=== PATIENT | female | born 1945 | race Caucasian/White ===

== ENCOUNTER 2017-11-21 08:07 | Outpatient (RCR) | payer MEDICARE, OTHER, SELFPAY ==
--- NOTE | 2017-11-22 11:02 | PT.OTN ---
Current Diagnoses Mixed incontinence (11/21/17) Physical Therapy Treatment Note PT-OP-A Visit Information Start: 11/21/17 08:14 Freq: Status: Active Protocol: Document 11/21/17 08:15 AMB (Rec: 11/22/17 07:24 AMB [email or web address]) Out-Patient Physical Therapy Visit Information Visit Information Visit Type Treatment Note Visit Note POC due 12/03/17 Visit Start Time 08:15 Visit Stop Time 09:00 Total Visit Minutes 45 Visit Number 4 Evaluation Information Evaluation Date 11/21/17 PT-OP-C Subjective Start: 11/21/17 08:14 Freq: Status: Active Protocol: Document 11/21/17 08:15 AMB (Rec: 11/22/17 07:24 AMB [email or web address]) OP-PT Subjective Patient Comments Patient Comments Pt reports she has an upcoming urology appointment. She feels like she is getting stronger. She still needs to wear pads. Continues to leak with sit to stand. PT-OP-Q Treatments Start: 11/21/17 08:14 Freq: Status: Active Protocol: Document 11/21/17 08:15 AMB (Rec: 11/22/17 11:01 AMB [email or web address]) Neuro Re-Education Treatment Other Activities Pelvic floor strengthening Details quick flicks, long holds up to 10 seconds Reps/Duration 30 min Comments with sEMG, then with e-stim Self-Care/Home Management Treatment Education Other Education Using pelvic floor strength to avoid leaks with functional activities, bladder emptying strategies. PT-OP-T Assessment and Plan Start: 11/21/17 08:14 Freq: Status: Active Protocol: Document 11/21/17 08:15 AMB (Rec: 11/22/17 11:01 AMB [email or web address]) Physical Therapy Assessment Assessment Summary Assessment The patient's strength is improving, but she continues to have leaking with sit to stand. Enforced using tightening techniques with functional movement. Physical Therapy Plan Frequency and Duration Frequency of Treatment 1x/Week Plan of Care End Date 12/03/17 Next Visit Focus/Plan Next Visit Plan Follow up on urology appointment, patient to call after that appointment to schedule, or if she is pursuing surgery, likely d/c at that time. Please Sign and Return: I have reviewed this Plan of Care and certify that the skilled therapy services above are required to meet the patient?s needs. Physician Signature Date Printed Name and Credentials Clinical Instructor Signature Printed Name and Credentials
--- NOTE | 2018-01-14 09:31 | PT.OPDS ---
Current Diagnoses Mixed incontinence (11/21/17) Provider Visit Care Team Role Provider Type Consuelo Lewis MD Attending Provider Physician Family Provider Primary Care Provider Specialty: Family Practice Address: [address] [place] [address], [facility] Email: [email or web address] Number Visit Number 4 Discharge Summary PT-OP-C Subjective Start: 11/21/17 08:14 Freq: Status: Active Protocol: Document 11/21/17 08:15 AMB (Rec: 11/22/17 07:24 AMB [email or web address]) OP-PT Subjective Patient Comments Patient Comments Pt reports she has an upcoming urology appointment. She feels like she is getting stronger. She still needs to wear pads. Continues to leak with sit to stand. PT-OP-T Assessment and Plan Start: 11/21/17 08:14 Freq: Status: Active Protocol: Document 01/14/18 09:21 AMB (Rec: 01/14/18 09:31 AMB [email or web address]) Physical Therapy Assessment Assessment Summary Assessment The patient is going to follow up her physician given that she continues to leak with sit to stand. She is ready to be discharged at this time.
== END 2018-01-27 15:02 ==
LOC: PHYS 08:07
PROVIDERS: Family Provider Family Medicine; PCP Family Medicine; Visit Provider Family Medicine
DX: N39.46 Mixed incontinence (principal)
CPT/HCPCS: 97112; 97535

== ENCOUNTER → 2018-02-17 09:48 | Outpatient (CLI) | payer MEDICARE, OTHER, SELFPAY | PROVIDERS: Family Provider Family Medicine; PCP Family Medicine; Visit Provider Family Medicine | DX: Z12.11 Encounter for screening for malignant neoplasm of colon (principal) ==

== ENCOUNTER → 2018-02-17 09:55 | Outpatient (CLI) | payer MEDICARE, OTHER, SELFPAY ==
[2018-02-17 11:07] LABS: Cholesterol 189 mg/dL (140-199); Glucose 95 mg/dL (80-110); HDL Cholesterol 69 mg/dL (40-60); LDL Cholesterol Calculated 103 mg/dL (<100); Triglycerides 87 mg/dL (35-150)
== END ==
PROVIDERS: PCP Family Medicine; Visit Provider Family Medicine
DX: Z12.11 Encounter for screening for malignant neoplasm of colon (principal); Z13.220 Encounter for screening for lipoid disorders; Z13.1 Encounter for screening for diabetes mellitus
CPT/HCPCS: 36415; 80061; 82947

== ENCOUNTER → 2018-03-04 09:15 | Outpatient (CLI) | payer MEDICARE, OTHER, SELFPAY ==
[2018-03-07 00:19] LABS: Fecal Immunochemical Test NOT DETECTED
== END ==
PROVIDERS: PCP Family Medicine; Visit Provider Family Medicine
DX: Z12.11 Encounter for screening for malignant neoplasm of colon (principal)
CPT/HCPCS: 82274

== ENCOUNTER → 2019-04-16 13:17 | Outpatient (CLI) | payer MEDICARE, OTHER, SELFPAY | PROVIDERS: Family Provider Family Medicine; PCP Family Medicine; Visit Provider Internal Medicine | DX: M85.852 Other specified disorders of bone density and structure, left thigh (principal); Z78.0 Asymptomatic menopausal state; Z82.62 Family history of osteoporosis | CPT/HCPCS: 77080 ==

== ENCOUNTER 2019-06-06 07:37 | Emergency (ER) | payer MEDICARE, OTHER, SELFPAY ==
[2019-06-06 07:53] VITALS: BP 139/68; PULSE 83; RESP 18; TEMP 36.6; O2SAT 98; BMI 24.2
--- NOTE | 2019-06-06 08:02 | ED_ITS ---
HPI - Female Genitourinary General Chief complaint: Urogenital-Female Stated complaint: needing new catheter put in Time Seen by Provider: 06/06/19 08:01 Mode of arrival: Ambulatory History of Present Illness HPI Narrative: 74-year-old woman 2 weeks now post urethral sling and vaginal prolapse repair at [facility]. Apparently there had been a slight injury to her bladder and some repair to the bladder at the time of surgery. She was discharged home with Ayers catheter. The catheter was to be removed yesterday however she found it dislodged (no evidence of inflated balloon) on . She was unable to spontaneously void. She was found to have 700 cc in her bladder at her follow-up surgical visit and the catheter was replaced. She again noted the catheter had spontaneously come out and again the balloon was not inflated. She presents this morning with inability to void for replacement of catheter. No fevers cough cold chills chest pain shortness of breath abdominal pain dysuria or significant postoperative pain Related Data Home Medications Medication Instructions Recorded Confirmed GLUCOSAMINE HCL/CHONDR ANDREA A NA 1 tab PO BID #60 05/07/11 12/22/18 (Glucosamine-Chondroitin Caplet) polyethylene glycol 3350 [Miralax] 17 gm PO QDAY #0 01/24/17 12/22/18 ascorbic acid (vitamin C) 500 mg PO QDAY #0 04/17/17 12/22/18 coenzyme Q10 [Co Q-10] 100 mg PO #0 04/17/17 12/22/18 Previous Rx's Medication Instructions Recorded estradiol [Estrace] 0 VAGINAL SEE INSTRUCTIONS #2 tube 06/18/17 rosuvastatin 10 mg tablet 10 mg PO HS #90 tab 04/14/18 risedronate 35 mg tablet 35 mg PO QWEEK #12 tab 12/15/18 Allergies Allergy/AdvReac Type Severity Reaction Status Date / Time latex [LATEX] Allergy Unknown Verified 06/06/19 07:53 Sulfa (Sulfonamide Allergy Unknown Verified 06/06/19 07:53 Antibiotics) Review of Systems Review of Systems ROS Unobtainable: All systems reviewed & are unremarkable except as noted in HPI and below Patient History Medical History Gastroesophageal reflux disease (Chronic) Metatarsalgia of both feet (05/14/16) Mixed stress and urge urinary incontinence (Chronic 05/23/15) Obstructive sleep apnea syndrome (Chronic 05/14/16) Osteoporosis without current pathological fracture (Chronic 07/17/17) Rosacea (Chronic) alcohol intake frequency: 0-2 drinks per day Alcohol type: wine Substance Use Type: does not use Exam Narrative Exam Narrative: General: Healthy appearing, in no acute distress. Able to give a complete and full history cooperative. Well-nourished well-developed HEENT: Moist mucous membranes, normal sclera with reactive pupils, Neck: No JVD, supple Respiratory: Lungs are clear to auscultation, no wheezing no rales no rhonchi. Full and symmetrical air movement Cardiac: Regular rate and rhythm no murmurs no bruits Abdomen: Soft nontender good bowel tones, no flank pain, nicely healing trocar sites bilateral suprapubic area Skin: Warm and dry, no rashes Neurologic: Grossly neurologically intact with no obvious asymmetries or abnormalities Extremities: No trauma, well perfused Psych: appropriate insight and affect Initial Vital Signs Initial Vital Signs: Vital Signs Temperature 98 F 06/06/19 07:53 Pulse Rate 83 06/06/19 07:53 Respiratory Rate 18 06/06/19 07:53 Blood Pressure 139/68 06/06/19 07:53 Pulse Oximetry 98 06/06/19 07:53 Course Course Course Narrative: With 2 episodes of Ayers coming out within 48 hours. I am wondering if there is a stitch her something sharp left postoperatively that is causing the balloons to puncture. Bladder scan in the ER this morning reveals 576 cc of urine. Ayers catheter is placed without complication and patient is discharged home. She has follow-up scheduled on Saturday (3 days) with her surgeon at [facility]. Vital Signs Vital signs: Vital Signs - 8 hr 06/06/19 07:53 Temperature 98 F Pulse Rate 83 Respiratory Rate 18 Blood Pressure 139/68 Pulse Oximetry 98 Discharge Plan Departure Patient Disposition: Home Clinical Impression: Ayers catheter problem Qualifiers: Encounter type: initial encounter Qualified Code(s): T83.9XXA - Unspecified complication of genitourinary prosthetic device, implant and graft, initial encounter Activity Restrictions/Additional Instructions: Thank you for coming in today. I am sorry you are having issues with being unable to void after surgery. The good news is it will get better and just take some time. You did have over 500 cc of urine in 7your bladder this morning and a Ayers catheter was again replaced. Given recent surgery and the fact that you have had 2 catheters ?falling out? in the last couple of days I am wondering if there may be a small suture or stitch that is puncturing the Ayers catheter balloons. If this Ayers has issues you will again need to return to the emergency room. Otherwise, please keep your appointment with your surgeon on Saturday. I wish you the very best. Prescriptions: No Action GLUCOSAMINE HCL/CHONDR ANDREA A NA (Glucosamine-Chondroitin Caplet) 1 tab PO BID Qty: 60 RF: 0 polyethylene glycol 3350 [Miralax] 119 GM powder 17 gm PO QDAY Qty: 0 RF: 0 ascorbic acid (vitamin C) 500 MG tablet 500 mg PO QDAY Qty: 0 RF: 0 coenzyme Q10 [Co Q-10] 100 MG capsule 100 mg PO Qty: 0 RF: 0 estradiol [Estrace] 0.01 % cream 0 Vaginal SEE INSTRUCTIONS Qty: 2 RF: 3 rosuvastatin 10 mg tablet 10 mg PO HS Qty: 90 RF: 3 risedronate [Actonel] 35 mg tablet 35 mg PO QWEEK Qty: 12 RF: 4 Referrals: Consuelo Lewis MD [Primary Care Provider] -
== END 2019-06-06 08:50 | disposition home or self-care (01) ==
PROVIDERS: Emergency Provider Emergency Medicine; Family Provider Family Medicine; PCP Family Medicine
DX: T83.9XXA Unspecified complication of genitourinary prosthetic device, implant and graft, initial encounter (principal)
CPT/HCPCS: 51798; 99282; 99283

== ENCOUNTER → 2020-10-21 14:43 | Outpatient (ROUT) | payer MEDICARE, OTHER, SELFPAY ==
[2020-10-21 15:12] LABS: Alanine Aminotransferase 22 IU/L (<35); Albumin 4.1 g/dL (3.5-5.0); Albumin Globulin Ratio 1.6 (1.0-2.8); Alkaline Phosphatase 67 U/L (38-126); Aspartate Aminotransferase 35 IU/L (14-36); BUN Creatinine Ratio 28.3 (6-22); Bilirubin Total 1.1 mg/dL (0.2-1.3); Blood Urea Nitrogen 17 mg/dL (7-17); Calcium 9.7 mg/dL (8.4-10.2); Carbon Dioxide 26 mmol/L (22-32); Chloride 103 mmol/L (98-107); Cholesterol 167 mg/dL (140-199); Estimated Glomerular Filt Rate > 60.0 mL/min (>60); Globulin 2.6 g/dL (1.7-4.1); Glucose 95 mg/dL (80-110); HDL Cholesterol 67 mg/dL (40-60); HEMOLYSIS < 15 (0-50); LDL Cholesterol Calculated 89 mg/dL (<100); Potassium 4.1 mmol/L (3.4-5.1); Sodium 137 mmol/L (137-145); Total Protein 6.7 g/dL (6.3-8.2); Triglycerides 56 mg/dL (35-150)
[2020-10-21 15:25] LABS: Vitamin D 25 Hydroxy (D3) 96.6 ng/mL (30.0-100.0)
== END ==
PROVIDERS: Family Provider Family Medicine; PCP Internal Medicine; Visit Provider Internal Medicine
DX: R30.0 Dysuria (principal); M81.0 Age-related osteoporosis without current pathological fracture; E78.5 Hyperlipidemia, unspecified
CPT/HCPCS: 80053; 80061; 82306; 87086

== ENCOUNTER → 2021-03-01 13:01 | Outpatient (CLI) | payer MEDICARE, OTHER, SELFPAY ==
--- NOTE | 2021-03-01 | DI.MG.S_ITS ---
BILATERAL DIGITAL SCREENING MAMMOGRAM 3D/2D WITH CAD: 03/01/2021 CLINICAL: Routine screening. Family history of breast cancer. Comparison is made to exams dated: 12/12/2018 mammogram, 06/18/2017 mammogram, and 06/15/2016 mammogram - outside. The tissue of both breasts is predominantly fatty. Current study was also evaluated with a Computer Aided Detection (CAD) system. There are benign vascular calcifications in both breasts. No significant masses, calcifications, or other findings are seen in either breast. There has been no significant interval change. IMPRESSION: BENIGN There is no mammographic evidence of malignancy. A 1 year screening mammogram is recommended. This exam was interpreted at Station ID: [id number]. NOTE: For mammograms, a report in lay terms will be sent to the patient. Approximately 15% of breast malignancies will not be visualized mammographically. In the management of a palpable breast mass, a negative mammogram must not discourage biopsy of a clinically suspicious lesion. Electronically Signed By: Joel Gonzalez acr/artur:03/01/2021 13:50:22 letter sent: Normal Exam ACR BI-RADS Category 2: Benign Finding(s) 3342F
== END ==
PROVIDERS: Family Provider Family Medicine; PCP Internal Medicine; Referring Provider Internal Medicine; Visit Provider Internal Medicine
DX: Z12.31 Encounter for screening mammogram for malignant neoplasm of breast (principal); Z80.3 Family history of malignant neoplasm of breast
CPT/HCPCS: 77063; 77067

== ENCOUNTER → 2021-05-23 13:47 | Outpatient (CLI) | payer MEDICARE, OTHER, SELFPAY ==
--- NOTE | 2021-05-23 13:49 | DI.RAD.S_ITS ---
PROCEDURE: XR DEXA AXIAL SKELETON INDICATIONS: Age-related osteoporosis COMPARISON: [facility], CR, XR DEXA AXIAL SKELETON, 04/16/2019, 13:54. FINDINGS: This blank DEXA report has been sent in error by the PACS system. The correct and complete report will be forthcoming in 1-2 days. Thank you for your patience and understanding. Dictated by: Brittany Payton MD, PhD on 05/23/2021 at 16:40 Approved by: Brittany Payton MD, PhD on 05/23/2021 at 16:40
== END ==
PROVIDERS: Family Provider Family Medicine; PCP Internal Medicine; Referring Provider Internal Medicine; Visit Provider Internal Medicine
DX: Z78.0 Asymptomatic menopausal state (principal); M81.0 Age-related osteoporosis without current pathological fracture; Z82.62 Family history of osteoporosis
CPT/HCPCS: 77080

== ENCOUNTER → 2022-03-28 08:39 | Outpatient (CLI) | payer MEDICARE, OTHER, SELFPAY ==
--- NOTE | 2022-03-28 | DI.MG.S_ITS ---
BILATERAL DIGITAL SCREENING MAMMOGRAM 3D/2D WITH CAD: 03/28/2022 CLINICAL: Routine screening. Family history of breast cancer. Comparison is made to exams dated: 03/01/2021 mammogram - [facility], 12/12/2018 mammogram, and 06/18/2017 mammogram - outside. Both breasts are almost entirely fatty (category a/<25% glandular tissue). Current study was also evaluated with a Computer Aided Detection (CAD) system. There are benign vascular calcifications in both breasts. No significant masses, calcifications, or other findings are seen in either breast. There has been no significant interval change. IMPRESSION: BENIGN There is no mammographic evidence of malignancy. A 1 year screening mammogram is recommended. Based on the Tyrer Cuzick model (a risk assessment model) the patient's lifetime risk is 3.1% and her 10 year risk is 0.0%. According to the ACR, ACS, and NCCN guidelines, an annual breast MRI exam along with mammogram is recommended if the patient's lifetime risk is 20% or greater. This exam was interpreted at Station ID: [id number]. NOTE: For mammograms, a report in lay terms will be sent to the patient. Approximately 15% of breast malignancies will not be visualized mammographically. In the management of a palpable breast mass, a negative mammogram must not discourage biopsy of a clinically suspicious lesion. Electronically Signed By: Luis Reza M.D., jr/artur:03/28/2022 13:39:15 letter sent: Normal Exam ACR BI-RADS Category 2: Benign Finding(s) [id number]
== END ==
PROVIDERS: Family Provider Family Medicine; PCP Internal Medicine; Referring Provider Internal Medicine; Visit Provider Internal Medicine
DX: Z12.31 Encounter for screening mammogram for malignant neoplasm of breast (principal); Z80.3 Family history of malignant neoplasm of breast
CPT/HCPCS: 77063; 77067

== ENCOUNTER → 2022-05-30 11:05 | Outpatient (CLI) | payer MEDICARE, OTHER, SELFPAY | PROVIDERS: Family Provider Family Medicine; PCP Internal Medicine; Referring Provider Internal Medicine; Visit Provider Internal Medicine | DX: M81.0 Age-related osteoporosis without current pathological fracture (principal); Z78.0 Asymptomatic menopausal state; Z79.83 Long term (current) use of bisphosphonates; G47.33 Obstructive sleep apnea (adult) (pediatric) | CPT/HCPCS: 77080; 99213 ==

== ENCOUNTER → 2023-04-06 09:23 | Outpatient (CLI) | payer MEDICARE, OTHER, SELFPAY ==
--- NOTE | 2023-04-06 09:25 | DI.MG.S_ITS ---
BILATERAL DIGITAL SCREENING MAMMOGRAM 3D/2D WITH CAD: 04/06/2023 CLINICAL: Routine screening. Family history of breast cancer. Comparison is made to exams dated: 03/28/2022 mammogram, 03/01/2021 mammogram - [facility], and 12/12/2018 mammogram - outside. Both breasts are extremely dense, which lowers the sensitivity of mammography (category d />75% glandular tissue). Current study was also evaluated with a Computer Aided Detection (CAD) system. There are benign vascular calcifications in both breasts. There also are benign post operative findings in both breasts. No significant masses, calcifications, or other findings are seen in either breast. There has been no significant interval change. IMPRESSION: BENIGN There is no mammographic evidence of malignancy. A 1 year screening mammogram is recommended. Based on the Tyrer Cuzick model (a risk assessment model) the patient's lifetime risk is 9.5% and her 10 year risk is 0.0%. According to the ACR, ACS, and NCCN guidelines, an annual breast MRI exam along with mammogram is recommended if the patient's lifetime risk is 20% or greater. This exam was interpreted at Station ID: [id number]. NOTE: For mammograms, a report in lay terms will be sent to the patient. Approximately 15% of breast malignancies will not be visualized mammographically. In the management of a palpable breast mass, a negative mammogram must not discourage biopsy of a clinically suspicious lesion. Electronically Signed By: Blair hill/artur:04/06/2023 10:40:58 letter sent: Normal Exam ACR BI-RADS Category 2: Benign Finding(s) 3342F
== END ==
PROVIDERS: Family Provider Family Medicine; PCP Internal Medicine; Referring Provider Internal Medicine; Visit Provider Internal Medicine
DX: Z12.31 Encounter for screening mammogram for malignant neoplasm of breast (principal); Z80.3 Family history of malignant neoplasm of breast
CPT/HCPCS: 77063; 77067

== ENCOUNTER → 2024-04-13 07:57 | Outpatient (CLI) | payer MEDICARE, OTHER, SELFPAY ==
--- NOTE | 2024-04-13 08:00 | DI.MG.S_ITS ---
BILATERAL DIGITAL SCREENING MAMMOGRAM 3D/2D WITH CAD: 04/13/2024 CLINICAL: Routine screening. Family history of breast cancer. Comparison is made to exams dated: 04/06/2023 mammogram, 03/28/2022 mammogram, and 03/01/2021 mammogram - [facility]. The breasts are extremely dense, which lowers the sensitivity of mammography (category d />75% glandular tissue). Current study was also evaluated with a Computer Aided Detection (CAD) system. There are benign vascular calcifications in both breasts. There also are benign post operative findings in both breasts. No significant masses, calcifications, or other findings are seen in either breast. There has been no significant interval change. IMPRESSION: BENIGN There is no mammographic evidence of malignancy. A 1 year screening mammogram is recommended. Based on the Tyrer Cuzick model (a risk assessment model) the patient's lifetime risk is 16.0% and her 10 year risk is 0.0%. According to the ACR, ACS, and NCCN guidelines, an annual breast MRI exam along with mammogram is recommended if the patient's lifetime risk is 20% or greater. This exam was interpreted at Station ID: [id number]. NOTE: For mammograms, a report in lay terms will be sent to the patient. Approximately 15% of breast malignancies will not be visualized mammographically. In the management of a palpable breast mass, a negative mammogram must not discourage biopsy of a clinically suspicious lesion. Electronically Signed By: Blair hill/artur:04/13/2024 08:49:09 letter sent: Normal Exam ACR BI-RADS Category 2: Benign
== END ==
PROVIDERS: Family Provider Family Medicine; PCP Internal Medicine; Referring Provider Internal Medicine; Visit Provider Internal Medicine
DX: Z12.31 Encounter for screening mammogram for malignant neoplasm of breast (principal); Z80.3 Family history of malignant neoplasm of breast; R92.343 Mammographic extreme density, bilateral breasts
CPT/HCPCS: 77063; 77067

== ENCOUNTER → 2024-06-05 09:29 | Outpatient (CLI) | payer MEDICARE, OTHER, SELFPAY ==
--- NOTE | 2024-06-05 09:30 | DI.RAD.S_ITS ---
PROCEDURE: XR DEXA AXIAL SKELETON INDICATIONS: age related osteoporosis COMPARISON: [facility], CR, XR DEXA AXIAL SKELETON, 05/30/2022, 11:33. FINDINGS: Lumbar Spine: Bone mineral density 1.215 g/cm2, T score 1.2, increasing bone mineral density trend within the normal range may represent increasing calcification of the aorta or osteophyte formation in a degenerative spine. Left Femoral Neck: Bone mineral density 0.575 g/cm2, T score -2.5, osteopenia. Right Femoral Neck: Bone mineral density 0.674 g/cm2, T score -2.2, osteopenia. Fracture Risk Calculation (when applicable): 10-year fracture risk of a major osteoporotic fracture 13-17 percent and of a hip fracture 3.3-5.8 percent. (T score greater or equal to -1.0 to: NORMAL) (T score from -1.1 to -2.4: OSTEOPENIA) (T score less than or equal to -2.5: OSTEOPOROSIS) IMPRESSION: Osteopenia in the femoral necks with normal bone mineral density at the lumbar spine, which may be aberrant related to calcification of the aorta and degenerative spine osteophyte formation. Follow-up guidelines as follows: Osteoporosis: Consider a repeat DEXA and Vertebral Fracture Assessment (VFA) exam in 2 years or sooner if medically necessary, to reassess this patient's status. Osteopenia: Consider a repeat DEXA in 2-3 years to reassess this patient's status, or if there is a new clinical indication. Normal: Consider a repeat DEXA in 5 years or sooner, or if there is a new clinical indication. All treatment decisions require clinical judgment and consideration of individual patient factors, including patient preferences, comorbidities, previous drug use, risk factors not captured in the FRAX model (e.g., frailty, falls, vitamin D deficiency, increased bone turnover, interval significant decline in bone density ) and possible under- or over-estimation of fracture risk by FRAX. In addition, the NOF Guide recommends that FDA-approved medical therapies be considered in postmenopausal women and men age >= 50 years with a: * Hip or vertebral (clinical or morphometric) fracture * T-score of <=-2.5 at the spine or hip * Ten-year fracture probability by FRAX of >= 3% for hip fracture or >=20% for major osteoporotic fracture. People with diagnosed cases of osteoporosis or at high risk for fracture should have regular bone mineral density tests. For patients eligible for Medicare, routine testing is allowed once every 2 years. The testing frequency can be increased to one year for patients who have rapidly progressing disease, those who are receiving or discontinuing medical therapy to restore bone mass, or have additional risk factors. Dictated by: Merrick Hoang M.D. on 06/05/2024 at 11:11 Approved by: Merrick Hoang M.D. on 06/05/2024 at 12:09 8
== END ==
PROVIDERS: Family Provider Family Medicine; PCP Internal Medicine; Referring Provider Internal Medicine; Visit Provider Internal Medicine
DX: M81.0 Age-related osteoporosis without current pathological fracture (principal)
CPT/HCPCS: 77080

== ENCOUNTER → 2025-04-19 12:30 | Outpatient (CLI) | payer MEDICARE, OTHER, SELFPAY ==
--- NOTE | 2025-04-19 12:31 | DI.MG.S_ITS ---
MM screening mammo BI: 04/19/2025. BI-RADS: 1 CLINICAL: 80-year old female for bilateral screening mammogram. Tyrer-Cuzick lifetime risk of 10.0%. Current reported family history of breast cancer: mother and maternal aunt. The patient had prior bilateral breast biopsies. PRIOR EXAMS 04/13/2024, 04/06/2023, 03/28/2022, 03/01/2021. MAMMOGRAPHY TECHNIQUE: 2D and 3D (tomosynthesis) digital mammographic views obtained, with additional images as needed for full coverage. Current study was also evaluated with a Computer Aided Detection (CAD) system. DENSITY D. The breasts are extremely dense, which lowers the sensitivity of mammography. MAMMOGRAPHY FINDINGS Bilateral: No suspicious mass, asymmetry, microcalcification, or other abnormality seen. IMPRESSION: * No evidence of malignancy. RECOMMENDATIONS Bilateral * Annual screening mammography. OVERALL ASSESSMENT CATEGORY BI-RADS-1: Negative. The [employer] recommends annual screening mammography beginning at age 40 for women with average risk of breast cancer. ELECTRONICALLY SIGNED: Maylin Bosch M.D. on 04/20/2025 at 04:34:38 PM PT Interpreting Station ID: [id number]
== END ==
LOC: MAMMO 12:30
PROVIDERS: Family Provider Family Medicine; PCP Internal Medicine; Referring Provider Internal Medicine; Visit Provider Internal Medicine
DX: Z12.31 Encounter for screening mammogram for malignant neoplasm of breast (principal); R92.343 Mammographic extreme density, bilateral breasts; Z80.3 Family history of malignant neoplasm of breast
CPT/HCPCS: 77063; 77067